=== PATIENT | female | born 1995 ===

== ENCOUNTER → 2021-01-04 | Outpatient (CLI) | LOC: FS 14:53 | PROVIDERS: ATTEND Family Medicine | DX: J02.9 Acute pharyngitis, unspecified (principal) | CPT/HCPCS: 87070; 87088 ==

== ENCOUNTER → 2021-01-10 | Outpatient (CLI) | payer BC ==
[2021-01-10 14:41] LABS: HEMATOCRIT 35 % (35-52); HEMOGLOBIN 11.5 G/DL (11.5-16.0); LYMPHOCYTES % (AUTO) 19 % (12-44); MEAN CORPUSCULAR HEMOGLOBIN 27 PG (25-34); MEAN CORPUSCULAR HGB CONC 33 G/DL (32-36); MEAN CORPUSCULAR VOLUME 84 FL (80-99); MEAN PLATELET VOLUME 12.4 FL (7.4-10.4); NEUTROPHILS % (AUTO) 78 % (42-75); PLATELET COUNT 114 10^3/uL (130-400); WHITE BLOOD COUNT 7.4 10^3/uL (4.3-11.0)
[2021-01-10 14:42] LABS: BASOPHILS % (AUTO) 0 % (0-10); EOSINOPHILS % (AUTO) 0 % (0-10); LYMPHOCYTES # (AUTO) 1.4 X 10^3 (1.0-4.0); MONOCYTES # (AUTO) 0.2 X 10^3 (0.0-1.0); MONOCYTES % (AUTO) 3 % (0-12); NEUTROPHILS # (AUTO) 5.7 X 10^3 (1.8-7.8)
[2021-01-10 14:43] LABS: ATYPICAL LYMPHOCYTES 2 %; BAND NEUTROPHILS 10 %; BASOPHILS % (MANUAL) 0 %; EOSINOPHILS % (MANUAL) 0 %; LYMPHOCYTES % (MANUAL) 18 %; MONOCYTES % (MANUAL) 2 %; NEUTROPHILS % (MANUAL) 68 %
[2021-01-10 14:44] LABS: ALKALINE PHOSPHATASE 43 U/L (40-136); BILIRUBIN,TOTAL 0.4 MG/DL (0.1-1.0); BUN/CREATININE RATIO 12; CALCIUM 8.6 MG/DL (8.5-10.1); CARBON DIOXIDE 24 MMOL/L (21-32); CHLORIDE 96 MMOL/L (98-107); CREATININE SERUM 0.67 MG/DL (0.60-1.30); GFR ESTIMATED > 60; GLUCOSE 97 MG/DL (70-105); SODIUM 133 MMOL/L (135-145)
[2021-01-10 14:45] LABS: ALANINE AMINOTRANSFERASE 17 U/L (0-55); ALBUMIN 3.9 GM/DL (3.2-4.5); TOTAL PROTEIN 7.4 GM/DL (6.4-8.2)
--- NOTE | 2021-01-10 17:12 | Diagnostic Imaging Report ---
EXAMINATION: PA and lateral chest at 1:57 PM INDICATION: Cough and congestion There are no prior studies available for comparison. The heart size is within normal limits. There are patchy alveolar/interstitial infiltrates in the left upper lung and right perihilar region. These findings do suggest mild pneumonia/atelectasis. There is no sign of a pleural effusion. The mediastinum is not widened. The osseous structures are intact. IMPRESSION: The findings do suggest mild bilateral pneumonia/atelectasis. Clinical follow-up is recommended. Dictated by: Dictated on workstation # [id number]
== END ==
LOC: LAB FS 13:46
PROVIDERS: ATTEND Family Medicine
DX: B34.9 Viral infection, unspecified (principal)
CPT/HCPCS: 36415; 71046; 80053; 85007; 85027; 86308

== ENCOUNTER 2021-01-11 09:42 | Inpatient (IN) | payer BC ==
[~2021-01-11] VITALS: Ht 175.3 cm; Wt 90.9 kg
--- NOTE | 2021-01-11 10:01 | ED Abdominal Pain ---
General Chief Complaint: Abdominal/GI Problems Stated Complaint: VOMITING History of Present Illness Date Seen by Provider: Jan 11, 2021 Time Seen by Provider: 09:55 Initial Comments 25 y/o female presents with cont'd n/v and SOA.....for past 2 weeks. Seen in this ER yesterday and Dx with pneumonia, sent home with Levaquin and steroid, but can't take medicine due to n/v which persists. Getting weaker and feeling worse. No signif PMed Hx. Allergies and Home Medications Allergies Coded Allergies: No Known Drug Allergies (Unverified , 01/11/21) Patient Home Medication List Home Medication List Reviewed: Yes Review of Systems Review of Systems Constitutional: chills, fever, malaise EENTM: No Blurred Vision, No Double Vision, No Ear Drainage, No Ear Pain, No Throat Pain, No Throat Swelling Respiratory: See HPI, Cough, SOA at Rest; Denies Stridor, Denies Wheezing Cardiovascular: Denies Chest Pain, Denies Edema, Denies Palpitations, Denies Sy ncope Gastrointestinal: See HPI; Denies Abdominal Pain, Denies Constipated, Denies Diarrhea; Nausea, Poor Appetite, Poor Fluid Intake, Vomiting Musculoskeletal: No back pain, No joint pain Skin: No change in color Psychiatric/Neurological: Denies Anxiety, Denies Depressed, Denies Numbness, Denies Paresthesia, Denies Tremors; Weakness Past Kmhpbgg-Ndnbtx-Famjgy Hx Past Med/Social Hx: Reviewed Nursing Past Med/Soc Hx Physical Exam Vital Signs Vital Signs - First Documented 01/11/21 01/11/21 09:46 12:17 Temp 38.3 Pulse 110 Resp 18 B/P (MAP) 120/65 (83) Pulse Ox 90 O2 Delivery Room Air O2 Flow Rate 1.00 Capillary Refill : Height/Weight/BMI Height: '" Weight: lbs. oz. kg; BMI Method: General Appearance: WD/WN, no apparent distress Neck: non-tender, supple Respiratory: chest non-tender, lungs clear, normal breath sounds, no respiratory distress, no accessory muscle use Cardiovascular: regular rate, rhythm, no edema, no gallop, no JVD Gastrointestinal: normal bowel sounds, non tender, soft, no organomegaly Extremities: non-tender, no pedal edema, no calf tenderness Back: normal inspection, no CVA tenderness Neurologic/Psychiatric: alert, normal mood/affect, oriented x 3 Skin: normal color, warm/dry Progress/Results/Core Measures Results/Orders Lab Results Laboratory Tests Test 01/11/21 09:50 01/11/21 09:54 Range/Units Urine Color YELLOW Urine Clarity SLT CLOUDY Urine pH 6.5 5-9 Urine Specific [place] 1015 1.016-1.022 Urine Protein 1+ H NEGATIVE Urine Glucose (UA) NEGATIVE NEGATIVE Urine Ketones 3+ H NEGATIVE Urine Nitrite NEGATIVE NEGATIVE Urine Bilirubin NEGATIVE NEGATIVE Urine Urobilinogen 0.2 < = 1.0 MG/DL Urine Leukocyte Esterase NEGATIVE NEGATIVE Urine RBC (Auto) NEGATIVE NEGATIVE Urine RBC NONE /HPF Urine WBC 5-10 H /HPF Urine Squamous Epithelial Cells 5-10 /HPF Urine Crystals NONE /LPF Urine Bacteria TRACE /HPF Urine Casts NONE /LPF Urine Mucus NEGATIVE /LPF Urine Culture Indicated YES Urine Test NEGATIVE NEGATIVE White Blood Count 6.6 4.3-11.0 10^3/uL Red Blood Count 4.29 L 4.35-5.85 10^6/uL Hemoglobin 11.8 11.5-16.0 G/DL Hematocrit 35 35-52 % Mean Corpuscular Volume 81 80-99 FL Mean Corpuscular Hemoglobin 28 25-34 PG Mean Corpuscular Hemoglobin Concent 34 32-36 G/DL Red Cell Distribution Width 13.3 10.0-14.5 % Platelet Count 97 L 130-400 10^3/uL Mean Platelet Volume 13.3 H 7.4-10.4 FL Immature Granulocyte % (Auto) 0 % Neutrophils (%) (Auto) 83 H 42-75 % Lymphocytes (%) (Auto) 13 12-44 % Monocytes (%) (Auto) 4 0-12 % Eosinophils (%) (Auto) 0 0-10 % Basophils (%) (Auto) 0 0-10 % Neutrophils # (Auto) 5.5 1.8-7.8 X 10^3 Lymphocytes # (Auto) 0.9 L 1.0-4.0 X 10^3 Monocytes # (Auto) 0.2 0.0-1.0 X 10^3 Eosinophils # (Auto) 0.0 0.0-0.3 10^3/uL Basophils # (Auto) 0.0 0.0-0.1 10^3/uL Immature Granulocyte # (Auto) 0.0 0.0-0.1 10^3/uL Percent Immature Platelet Fraction 9.9 H 0.0-7.6 % Sodium Level 130 L 135-145 MMOL/L Potassium Level 3.1 L 3.6-5.0 MMOL/L Chloride Level 93 L 98-107 MMOL/L Carbon Dioxide Level 24 21-32 MMOL/L Anion Gap 13 5-14 MMOL/L Blood Urea Nitrogen 7 7-18 MG/DL Creatinine 0.61 0.60-1.30 MG/DL Estimat Glomerular Filtration Rate > 60 BUN/Creatinine Ratio 11 Glucose Level 103 70-105 MG/DL Calcium Level 8.6 8.5-10.1 MG/DL Corrected Calcium 8.8 8.5-10.1 MG/DL Total Bilirubin 0.5 0.1-1.0 MG/DL Aspartate Amino Transf (AST/SGOT) 26 5-34 U/L Alanine Aminotransferase (ALT/SGPT) 17 0-55 U/L Alkaline Phosphatase 40 40-136 U/L C-Reactive Protein 6.67 H <0.50 MG/DL Total Protein 7.3 6.4-8.2 GM/DL Albumin 3.8 3.2-4.5 GM/DL My Orders Orders - ROVENSTINEFABI L DO Ed Iv/Invasive Line Start (01/11/21 10:03) Comprehensive Metabolic Panel (01/11/21 10:03) Crp Fs (01/11/21 10:03) Procalcitonin (Pct) (01/11/21 10:03) Chest 1 View Ap/Pa Only (01/11/21 10:03) Ns Iv 1000 Ml (Sodium Chloride 0.9%) (01/11/21 10:15) Ondansetron Injection (Zofran Injectio (01/11/21 10:15) Cbc With Automated Diff (01/11/21 10:20) Acetaminophen Tablet (Tylenol Tablet) (01/11/21 10:45) Urinalysis (01/11/21 10:34) Hcg,Qualitative Urine (01/11/21 10:34) Levofloxacin 750 Mg/150 Ml Iv (Levaquin (01/11/21 11:15) Blood Culture (01/11/21 11:14) Dexamethasone Injection (Decadron Inje (01/11/21 11:30) Blood Culture (01/11/21 11:24) Urine Culture (01/11/21 09:50) Medications Given in ED Current Medications Medications Dose Ordered Sig/Shell Route Start Time Stop Time Status Last Admin Dose Admin Acetaminophen 1,000 mg ONCE ONCE PO 01/11/21 10:45 01/11/21 10:46 DC 01/11/21 10:54 1,000 MG Dexamethasone Sodium Phosphate 10 mg ONCE ONCE IV 01/11/21 11:30 01/11/21 11:31 DC 01/11/21 11:40 10 MG Levofloxacin/ Dextrose 150 ml @ 100 mls/hr ONCE ONCE IV 01/11/21 11:15 01/11/21 12:44 DC 01/11/21 11:28 100 MLS/HR Ondansetron HCl 4 mg ONCE ONCE IVP 01/11/21 10:15 01/11/21 10:16 DC 01/11/21 10:16 4 MG Vital Signs/I&O 01/11/21 01/11/21 09:46 12:17 Temp 38.3 37.6 Pulse 110 98 Resp 18 18 B/P (MAP) 120/65 (83) 118/76 Pulse Ox 90 93 O2 Delivery Room Air Nasal Cannula O2 Flow Rate 1.00 Diagnostic Imaging Diagonstic Imaging: Xray Comments Date of Exam:01/11/21 CHEST 1 VIEW AP/PA ONLY INDICATION: Shortness of breath, cough, weakness. TECHNIQUE: Single-view chest at 10:12 a.m. CORRELATION STUDY: 01/10/2021. FINDINGS: Heart size is borderline enlarged. Vasculature is within normal limits. Minimal residual patchy opacification in the left upper lung. Question minimal additional opacity at the right lung base. IMPRESSION: 1. Faint opacities in the left upper lung as well as right lung base. While these could be reflective of underlying mild multifocal pneumonia, follow-up imaging is recommended as these have a somewhat rounded nodular appearance. Dictated on workstation # [id number] Dict: 01/11/21 1049 Trans: 01/11/21 1054 [id number] Interpreted by: MAYELA LO DO Electronically signed by: Departure Communication (Admissions) Time/Spoke to Admitting Phy: 11:[address] Hart regarding HPI, presentation, labs and CXR....he accepts for OBS admission Impression Primary Impression: Pneumonia Qualified Codes: J18.9 - Pneumonia, unspecified organism Additional Impression: Hypoxia Disposition: 30 STILL A PATIENT Condition: Stable Admissions Decision to Admit Reason: Admit from ER (General) Decision to Admit/Date: Jan 11, 2021 Time/Decision to Admit Time: 11:00 Departure-Patient Inst. Referrals: LINDA DELGADO MD (PCP/Family) Primary Care Physician FABI CORREA DO Jan 11, 2021 10:01
[2021-01-11] MEDS ORDERED: ONDANSETRON 4 MG/2 ML (SDV) Z0FRAN IVP ONE (10:15)
[2021-01-11] MEDS ORDERED: NS IV 1000 ML 1,000 ML IV SCH (10:15)
[2021-01-11 10:29] LABS: HEMATOCRIT 35 % (35-52); HEMOGLOBIN 11.8 G/DL (11.5-16.0); MEAN CORPUSCULAR HEMOGLOBIN 28 PG (25-34); MEAN CORPUSCULAR HGB CONC 34 G/DL (32-36); MEAN CORPUSCULAR VOLUME 81 FL (80-99); PLATELET COUNT 97 10^3/uL (130-400); WHITE BLOOD COUNT 6.6 10^3/uL (4.3-11.0)
[2021-01-11 10:30] LABS: MEAN PLATELET VOLUME 13.3 FL (7.4-10.4)
[2021-01-11 10:32] LABS: BASOPHILS % (AUTO) 0 % (0-10); EOSINOPHILS % (AUTO) 0 % (0-10); LYMPHOCYTES # (AUTO) 0.9 X 10^3 (1.0-4.0); LYMPHOCYTES % (AUTO) 13 % (12-44); MONOCYTES # (AUTO) 0.2 X 10^3 (0.0-1.0); MONOCYTES % (AUTO) 4 % (0-12); NEUTROPHILS # (AUTO) 5.5 X 10^3 (1.8-7.8); NEUTROPHILS % (AUTO) 83 % (42-75)
[2021-01-11 10:45] LABS: BUN/CREATININE RATIO 11; CARBON DIOXIDE 24 MMOL/L (21-32); CHLORIDE 93 MMOL/L (98-107); CREATININE SERUM 0.61 MG/DL (0.60-1.30); GFR ESTIMATED > 60; POTASSIUM 3.1 MMOL/L (3.6-5.0); SODIUM 130 MMOL/L (135-145)
[2021-01-11] MEDS ORDERED: ACETAMINOPHEN 500 MG TAB (TYLENOL) PO ONE (10:45)
[2021-01-11 10:46] LABS: ALANINE AMINOTRANSFERASE 17 U/L (0-55); ALKALINE PHOSPHATASE 40 U/L (40-136); BILIRUBIN,TOTAL 0.5 MG/DL (0.1-1.0); CALCIUM 8.6 MG/DL (8.5-10.1); GLUCOSE 103 MG/DL (70-105); TOTAL PROTEIN 7.3 GM/DL (6.4-8.2)
[2021-01-11 10:47] LABS: ALBUMIN 3.8 GM/DL (3.2-4.5)
--- NOTE | 2021-01-11 10:56 | Diagnostic Imaging Report ---
INDICATION: Shortness of breath, cough, weakness. TECHNIQUE: Single-view chest at 10:12 a.m. CORRELATION STUDY: 01/10/2021. FINDINGS: Heart size is borderline enlarged. Vasculature is within normal limits. Minimal residual patchy opacification in the left upper lung. Question minimal additional opacity at the right lung base. IMPRESSION: 1. Faint opacities in the left upper lung as well as right lung base. While these could be reflective of underlying mild multifocal pneumonia, follow-up imaging is recommended as these have a somewhat rounded nodular appearance. Dictated by: Dictated on workstation # [id number]
[2021-01-11 13:00] LABS: BILIRUBIN,URINE NEGATIVE (NEGATIVE); CLARITY,URINE SLT CLOUDY; COLOR,URINE YELLOW; GLUCOSE, URINE (UA) NEGATIVE (NEGATIVE); KETONES,URINE 3+ (NEGATIVE); LEUKOCYTE ESTERASE ,URINE NEGATIVE (NEGATIVE); NITRITE,URINE NEGATIVE (NEGATIVE); PH,URINE 6.5 (5-9); PROTEIN,URINE 1+ (NEGATIVE)
[2021-01-11 13:01] LABS: BACTERIA,URINE TRACE /HPF
[2021-01-11] MEDS ORDERED: ONDANSETRON 4 MG/2 ML (SDV) Z0FRAN IV PRN ×2 (13:45→18:30)
[2021-01-11] MEDS ORDERED: CATHETER FLUSH 10 ML SYR IV PRN (13:45)
[2021-01-11] MEDS ORDERED: ACETAMINOPHEN 500 MG TAB (TYLENOL) PO PRN (13:45)
[2021-01-11] MEDS: NS W/KCL 20 MEQ/L 1,000 ML IV SCH ×3 (15:07→21:30)
[2021-01-11 15:57] VITALS: BP 115/65
[2021-01-11] MEDS ORDERED: polyethylene glycoL POWDER 17 GM (MIRALAX) PACK PO PRN (18:30)
[2021-01-11] MEDS ORDERED: MELATONIN 3 MG TABLET PO PRN (18:30)
[2021-01-11] MEDS ORDERED: MILK OF MAGNESIA 400 MG/5 ML 30 ML UDC PO PRN (18:30)
[2021-01-11] MEDS ORDERED: ENOXAPARIN 40 MG/0.4 ML (LOVENOX) SYR SC SCH (18:30)
[2021-01-11] MEDS ORDERED: diphenhydrAMINE 25 MG TAB (BENADRYL) PO PRN (18:30)
[2021-01-11] MEDS ORDERED: ONDANSETRON 4 MG (ZOFRAN) ORAL DISSOLVE TAB PO PRN (18:30)
[2021-01-11] MEDS ORDERED: ANTACID SUSP 30 ML UDC (MYLANTA) PO PRN (18:30)
[2021-01-11 19:19] VITALS: BP 111/63
[2021-01-11] MEDS: ENOXAPARIN 40 MG/0.4 ML (LOVENOX) SYR SC SCH (20:14)
[2021-01-11 23:37] VITALS: BP 123/69
[2021-01-12] VITALS (7 sets, daily range): BP systolic 103–121; BP diastolic 57–71
[2021-01-12] MEDS: NS W/KCL 20 MEQ/L 1,000 ML IV SCH ×2 (04:42→12:23)
[2021-01-12] MEDS ORDERED: RT-ALBUTEROL INHALER HFA (VENTOLIN HFA) 18 GM IH PRN (05:15)
[2021-01-12 05:34] LABS: BASOPHILS % (AUTO) 0 % (0-10); EOSINOPHILS % (AUTO) 0 % (0-10); NEUTROPHILS % (AUTO) 87 % (42-75)
[2021-01-12 05:36] LABS: HEMATOCRIT 31 % (35-52); HEMOGLOBIN 10.3 g/dL (11.5-16.0); LYMPHOCYTES # (AUTO) 0.6 10^3/uL (1.0-4.0); LYMPHOCYTES % (AUTO) 8 % (12-44); MEAN CORPUSCULAR HEMOGLOBIN 28 pg (25-34); MEAN CORPUSCULAR HGB CONC 34 g/dL (32-36); MEAN CORPUSCULAR VOLUME 84 fL (80-99); MEAN PLATELET VOLUME 13.2 fL (9.0-12.2); MONOCYTES # (AUTO) 0.3 10^3/uL (0.0-1.0); MONOCYTES % (AUTO) 4 % (0-12); NEUTROPHILS # (AUTO) 6.6 10^3/uL (1.8-7.8); PLATELET COUNT 91 10^3/uL (130-400); WHITE BLOOD COUNT 7.5 10^3/uL (4.3-11.0)
[2021-01-12 05:50] LABS: ALBUMIN 3.2 GM/DL (3.2-4.5); CHLORIDE 107 MMOL/L (98-107); POTASSIUM 3.5 MMOL/L (3.6-5.0); SODIUM 139 MMOL/L (135-145)
[2021-01-12 05:53] LABS: GLUCOSE 118 MG/DL (70-105); TOTAL PROTEIN 6.4 GM/DL (6.4-8.2)
[2021-01-12 05:54] LABS: BILIRUBIN,TOTAL 0.4 MG/DL (0.1-1.0); CARBON DIOXIDE 20 MMOL/L (21-32)
[2021-01-12 05:56] LABS: ALKALINE PHOSPHATASE 27 U/L (40-136); CREATININE SERUM 0.58 MG/DL (0.60-1.30); GFR ESTIMATED > 60
[2021-01-12 05:57] LABS: BUN/CREATININE RATIO 14
[2021-01-12 05:59] LABS: ALANINE AMINOTRANSFERASE 17 U/L (0-55)
[2021-01-12] MEDS: dexAMETHasone 6 MG TAB (DECADRON) PO SCH (06:04)
[2021-01-12] MEDS: RT-ALBUTEROL INHALER HFA (VENTOLIN HFA) 18 GM IH SCH ×3 (07:36→21:26)
[2021-01-12] MEDS: ACETAMINOPHEN 325 MG TABLET PO PRN ×2 (08:14→20:29)
[2021-01-12] MEDS: LEVOFLOXACIN 750 MG/D5W 150 ML PRE-MIX IV SCH (12:22)
--- NOTE | 2021-01-12 14:04 | History & Physical-Hospitalist ---
History of Present Illness HPI/Chief Complaint [place] Ferrari is a 25-year-old female with no known past medical history who presented with shortness of breath. She first started getting sick 2 weeks ago. She reports having a headache at that time. She also developed nausea and vomiting. She reports feeling dizzy. She developed shortness of breath and cough. She has not been eating and drinking well. She denies any changes in her taste or smell. She denies any chest pain. She has been having fevers and chills. She reports diaphoresis. She denies abdominal pain. She denies diarrhea. She has not had any dysuria. She denies any lower extremity sw elling. She did not receive the Covid vaccine. She has not been exposed to any sick contacts that she knows of. Source: patient Exam Limitations: no limitations Date Seen 01/12/21 Time Seen by a Provider: 10:20 Attending Physician Ashley Camacho MD PCP Francoise Pinzon MD Referring Physician Date of Admission Jan 11, 2021 at 13:24 Home Medications & Allergies Home Medications Reviewed patient Home Medication Reconciliation performed by pharmacy medication reconciliations dealer support technician and/or nursing. Patients Allergies have been reviewed. Allergies Allergies Coded Allergies No Known Drug Allergies (Unverified01/11/21) Past Mlpmyxk-Goxiyo-Ibxlue Hx Patient Social History Tobacco Use?: No Smoking Status: Never a Smoker Use of E-Cig and/or Vaping dev: No Substance use?: No Alcohol Use?: No Pt feels they are or have been: No Seasonal Allergies Seasonal Allergies: Yes Current Status status: No Advance Directives: No Communicates: Verbally Primary Language: Danish Preferred Spoken Language: Danish Is interpretation needed?: No Past Medical History Blood Disorders: No Family Medical History No Pertinent Family Hx Review of Systems Constitutional: diaphoresis, fever, malaise, weakness EENTM: no symptoms reported Respiratory: cough, short of breath Cardiovascular: no symptoms reported Gastrointestinal: nausea, vomiting Genitourinary: no symptoms reported Musculoskeletal: no symptoms reported Skin: no symptoms reported Psychiatric/Neurological: No Symptoms Reported Physical Exam Physical Exam Vital Signs Vital Signs - First Documented 01/11/21 01/11/21 01/12/21 09:46 12:17 05:01 Temp 38.3 Pulse 110 Resp 18 B/P (MAP) 120/65 (83) Pulse Ox 90 O2 Delivery Room Air O2 Flow Rate 1.00 FiO2 44 Capillary Refill : Less Than 3 Seconds Height, Weight, BMI Height: '" Weight: lbs. oz. kg; 29.58 BMI Method: General Appearance: No Apparent Distress, WD/WN HEENT: PERRL/EOMI, Pharynx Normal Neck: Normal Inspection, Supple Respiratory: No Accessory Muscle Use, No Respiratory Distress, Decreased Breath Sounds Cardiovascular: No Edema, No Murmur, Tachycardia (Regular rhythm) Gastrointestinal: Normal Bowel Sounds, Non Tender, Soft Extremity: Normal Inspection, Non Tender, No Pedal Edema Neurologic/Psychiatric: Alert, Oriented x3, No Motor/Sensory Deficits Skin: Normal Color, Warm/Dry Results Results/Procedures Labs Laboratory Tests 01/11/21 09:54 01/12/21 05:25 Patient resulted labs reviewed. Imaging: Reviewed Imaging Report Assessment/Plan Admission Diagnosis Acute respiratory failure due to COVID-19 Admission Status: Inpatient Order (span 2 midnights) Reason for Inpatient Admission: Respiratory failure requiring supplemental oxygen Assessment and Plan Acute respiratory failure due to COVID-19 Pneumonia Elevated D-dimer Hypokalemia Hyponatremia Supplemental oxygen as needed Decadron Outside window for Remdesivir and convalescent plasma Proning as tolerated D-dimer mildly elevated, continue to monitor Procalcitonin mildly elevated Started on IV Levaquin Monitor and replace electrolytes as needed DVT prophylaxis: Lovenox Diagnosis/Problems Diagnosis/Problems (1) Acute respiratory failure due to COVID-19 Status: Acute (2) PNA (pneumonia) Status: Acute (3) Elevated d-dimer Status: Acute (4) Hypokalemia Status: Acute (5) Hyponatremia Status: Acute (6) Thrombocytopenia Status: Acute ASHLEY CAMACHO MD Jan 12, 2021 14:04
[2021-01-12] MEDS: ENOXAPARIN 40 MG/0.4 ML (LOVENOX) SYR SC SCH (20:29)
[2021-01-12] MEDS: guaiFENesin/CODEINE (ROBITUSSIN AC) 10ML UDC PO PRN (23:26)
[2021-01-13] MEDS: NS W/KCL 20 MEQ/L 1,000 ML IV SCH ×2 (03:04→17:33)
[2021-01-13] MEDS: RT-ALBUTEROL INHALER HFA (VENTOLIN HFA) 18 GM IH SCH ×4 (03:10→21:10)
[2021-01-13 03:11] VITALS: BP 104/68
[2021-01-13] MEDS: guaiFENesin/CODEINE (ROBITUSSIN AC) 10ML UDC PO PRN (04:36)
[2021-01-13] MEDS: ACETAMINOPHEN 325 MG TABLET PO PRN (04:47)
[2021-01-13] MEDS: dexAMETHasone 6 MG TAB (DECADRON) PO SCH (04:50)
[2021-01-13 05:46] LABS: BASOPHILS % (AUTO) 0 % (0-10); EOSINOPHILS % (AUTO) 0 % (0-10); HEMATOCRIT 30 % (35-52); LYMPHOCYTES # (AUTO) 0.7 10^3/uL (1.0-4.0); LYMPHOCYTES % (AUTO) 7 % (12-44); MEAN CORPUSCULAR HEMOGLOBIN 28 pg (25-34); MEAN CORPUSCULAR HGB CONC 33 g/dL (32-36); MEAN CORPUSCULAR VOLUME 83 fL (80-99); MEAN PLATELET VOLUME 12.7 fL (9.0-12.2); MONOCYTES # (AUTO) 0.4 10^3/uL (0.0-1.0); MONOCYTES % (AUTO) 4 % (0-12); NEUTROPHILS # (AUTO) 8.4 10^3/uL (1.8-7.8); NEUTROPHILS % (AUTO) 89 % (42-75); PLATELET COUNT 130 10^3/uL (130-400); WHITE BLOOD COUNT 9.5 10^3/uL (4.3-11.0)
[2021-01-13 06:00] LABS: CHLORIDE 106 MMOL/L (98-107); SODIUM 136 MMOL/L (135-145)
[2021-01-13 06:01] LABS: CALCIUM 8.1 MG/DL (8.5-10.1)
[2021-01-13 06:02] LABS: GLUCOSE 104 MG/DL (70-105)
[2021-01-13 06:03] LABS: CARBON DIOXIDE 21 MMOL/L (21-32)
[2021-01-13 06:06] LABS: CREATININE SERUM 0.53 MG/DL (0.60-1.30); GFR ESTIMATED > 60
[2021-01-13 06:07] LABS: BUN/CREATININE RATIO 13
[2021-01-13 08:00] VITALS: BP 115/78
[2021-01-13] MEDS: LEVOFLOXACIN 750 MG/D5W 150 ML PRE-MIX IV SCH (12:06)
--- NOTE | 2021-01-13 12:31 | Progress Note - Hospitalist ---
Subjective HPI/CC On Admission Date Seen by Provider: Jan 13, 2021 Time Seen by Provider: 12:30 [place] Ferrari is a 25-year-old female with no known past medical history who presented with shortness of breath. She first started getting sick 2 weeks ago. She reports having a headache at that time. She also developed nausea and vomiting. She reports feeling dizzy. She developed shortness of breath and cough. She has not been eating and drinking well. She denies any changes in her taste or smell. She denies any chest pain. She has been having fevers and chills. She reports diaphoresis. She denies abdominal pain. She denies diarrhea. She has not had any dysuria. She denies any lower extremity swelling. She did not receive the Covid vaccine. She has not been exposed to any sick contacts that she knows of. Subjective/Events-last exam She is doing better. She denies shortness of breath. She has been eating and drinking well. She has been up and moving around. Objective Exam Vital Signs Vital Signs Date Time Temp Pulse Resp B/P (MAP) Pulse Ox O2 Delivery O2 Flow Rate FiO2 01/14/21 14:15 01/14/21 11:02 73 97 4.00 87 01/14/21 09:38 High Flow N/C 01/14/21 08:50 36.0 24 01/12/21 05:01 44 Capillary Refill : Less Than 3 Seconds General Appearance: No Apparent Distress, WD/WN Respiratory: Lungs Clear, Normal Breath Sounds, No Respiratory Distress Cardiovascular: Regular Rate, Rhythm, No Edema, No Murmur Gastrointestinal: Normal Bowel Sounds, Non Tender, Soft Extremity: Normal Inspection, Non Tender, No Pedal Edema Neurologic/Psychiatric: Alert, Oriented x3, No Motor/Sensory Deficits, Normal Mood/Affect Skin: Normal Color, Warm/Dry Results/Procedures Lab Patient resulted labs reviewed. Imaging: Reviewed Imaging Report Assessment/Plan Assessment and Plan Assess & Plan/Chief Complaint Acute respiratory failure due to COVID-19 Pneumonia Elevated D-dimer Supplemental oxygen as needed Continue Decadron Outside window for Remdesivir and convalescent plasma D-dimer mildly elevated on arrival, improved Procalcitonin mildly elevated Continue Levaquin Monitor and replace electrolytes as needed DVT prophylaxis: Lovenox Hyponatremia, resolved Hypokalemia, resolved Diagnosis/Problems Diagnosis/Problems (1) Acute respiratory failure due to COVID-19 Status: Acute (2) PNA (pneumonia) Status: Acute (3) Elevated d-dimer Status: Acute (4) Hypokalemia Status: Resolved Resolution Date/Time: 01/14/21 @ 12:02 (5) Hyponatremia Status: Resolved Resolution Date/Time: 01/14/21 @ 12:02 (6) Thrombocytopenia Status: Resolved Resolution Date/Time: 01/14/21 @ 12:02 CORBY CAMACHO MD Jan 13, 2021 12:31
[2021-01-13 16:08] VITALS: BP 121/82
[2021-01-13 19:29] VITALS: BP 118/81
[2021-01-13] MEDS: ENOXAPARIN 40 MG/0.4 ML (LOVENOX) SYR SC SCH (20:32)
[2021-01-13 23:38] VITALS: BP 132/90
[2021-01-14] MEDS: RT-ALBUTEROL INHALER HFA (VENTOLIN HFA) 18 GM IH SCH ×2 (02:49→09:13)
[2021-01-14 04:19] VITALS: BP 135/88
[2021-01-14] MEDS: dexAMETHasone 6 MG TAB (DECADRON) PO SCH (05:33)
[2021-01-14] MEDS: NS W/KCL 20 MEQ/L 1,000 ML IV SCH (06:43)
[2021-01-14 08:50] VITALS: BP 108/70
[2021-01-14] MEDS ORDERED: LEVO750T39 PO (11:49)
--- NOTE | 2021-01-14 12:03 | Discharge Summary ---
Discharge Summary Hospital Course Was the Problem List Reviewed?: Yes Problems/Dx: (1) Acute respiratory failure due to COVID-19 Status: Acute (2) PNA (pneumonia) Status: Acute (3) Elevated d-dimer Status: Acute (4) Hypokalemia Status: Resolved (5) Hyponatremia Status: Resolved (6) Thrombocytopenia Status: Resolved Hospital Course Date of Admission: Jan 11, 2021 at 13:24 Admission Diagnosis : Acute respiratory failure due to COVID-19 Family Physician/Provider: Linda Delgado MD Date of Discharge: 01/14/21 Discharge Diagnosis: Acute respiratory failure due to COVID-19 Hospital Course: [place] Ferrari is a 25-year-old female who presented with shortness of breath and was admitted with acute respiratory failure due to COVID-19. Her symptoms have been going on for a couple weeks. She was started on dexamethasone. She was outside of the window for remdesivir and convalescent plasma. There was concern for bacterial pneumonia as well and she was treated with Levaquin. She will complete a course of oral antibiotics as an outpatient. She was requiring up to 5 L of oxygen but this improved. She was requiring 1 L of oxygen with exertion at the time of discharge. She was discharged home in stable condition and will follow up with her primary care physician in about a week. Labs and Pending Lab Test: Microbiology 01/11/21 Blood Culture - Preliminary, Resulted No growth 01/11/21 Urine Culture - Final, Complete See Comments Home Meds Active Levofloxacin 750 Mg Tablet 750 Mg PO DAILY 7 Days Assessment/Pt Instructions Take medications as prescribed. Complete your course of antibiotics even if you're feeling better. Follow-up with your primary care physician in about a week. Return with worsening shortness of breath, chest pain, or if you feel like you're getting worse. Discharge Planning: <30 minutes discharge planning Discharge Instructions Discharge Diet: No Restrictions Activity as Tolerated: Yes Discharge Physical Examination Vital Signs Vital Signs Date Time Temp Pulse Resp B/P (MAP) Pulse Ox O2 Delivery O2 Flow Rate FiO2 01/14/21 11:02 73 97 4.00 87 01/14/21 09:38 High Flow N/C 01/14/21 08:50 36.0 24 108/70 (83) 01/12/21 05:01 44 General Appearance: No Apparent Distress, WD/WN HEENT: PERRL/EOMI, Pharynx Normal Respiratory: Lungs Clear, Normal Breath Sounds, No Respiratory Distress Cardiovascular: Regular Rate, Rhythm, No Edema, No Murmur Gastrointestinal: Normal Bowel Sounds, Non Tender, Soft Extremity: Normal Inspection, Non Tender, No Pedal Edema Skin: Normal Color, Warm/Dry Neurologic/Psychiatric: Alert, Oriented x3, No Motor/Sensory Deficits, Normal Mood/Affect Allergies: Coded Allergies: No Known Drug Allergies (Unverified , 01/11/21) Copy Copies To 1: LINDA DELGADO MD Discharge Summary Date of Admission Jan 11, 2021 at 13:24 Date of Discharge Discharge Date: Jan 14, 2021 Discharge Time: 09:40 Admission Diagnosis Acute respiratory failure due to COVID-19 Discharge Diagnosis Acute respiratory failure due to COVID-19 (1) Acute respiratory failure due to COVID-19 Status: Acute (2) PNA (pneumonia) Status: Acute (3) Elevated d-dimer Status: Acute (4) Hypokalemia Status: Resolved (5) Hyponatremia Status: Resolved (6) Thrombocytopenia Status: Resolved CORBY CAMACHO MD Jan 14, 2021 12:01
== END 2021-01-14 14:15 | disposition home or self-care (01) | DRG 177 ==
LOC: EDUNIT# 09:42 → ER FS 09:44 → 4TH 13:24 → OBSVTOIN 13:24
PROVIDERS: ADMIT Internal Medicine; ATTEND Internal Medicine
DX: U07.1 COVID-19 (principal); J96.01 Acute respiratory failure with hypoxia; J15.9 Unspecified bacterial pneumonia; E87.1 Hypo-osmolality and hyponatremia; E87.6 Hypokalemia; D69.6 Thrombocytopenia, unspecified
CPT/HCPCS: 36415; 71045; 80048; 80053; 81000; 84145; 84703; 85025; 85379; 86141; 87040; 87088; 87636; 94640; 94760; 94761; G0378

== ENCOUNTER → 2021-04-05 | Outpatient (CLI) | payer BC ==
[~2021-04-05] MED LIST: LEVO750T39 PO
== END ==
LOC: LABNPT 15:39
PROVIDERS: ATTEND Family Medicine
DX: Z01.419 Encounter for gynecological examination (general) (routine) without abnormal findings (principal)
CPT/HCPCS: 87491

== ENCOUNTER → 2021-04-05 | Outpatient (CLI) | payer BC ==
--- NOTE | 2021-04-05 15:37 | Diagnostic Imaging Report ---
INDICATION: Low back pain. TIME OF EXAM: 12:38 PM. FINDINGS: Three views of the lumbar spine show normal curvature and alignment. The vertebral body heights are maintained. The disc spaces are fairly well-preserved. No fracture or subluxation is seen. IMPRESSION: No acute abnormality is detected. Dictated by: Dictated on workstation # [id number]
== END ==
LOC: RAD FS 12:18
PROVIDERS: ATTEND Family Medicine
DX: M54.5 Low back pain (principal)
CPT/HCPCS: 72100